=== PATIENT | female | born 1980 | race Caucasian/White ===

== ENCOUNTER → 2019-01-24 | Outpatient (CLI) | payer OTHER ==
--- NOTE | 2019-01-25 09:47 | CT ---
EXAM DESCRIPTION: CTA Chest: Computed Tomography. CLINICAL HISTORY: CHEST PAIN COMPARISON: CT chest with contrast 2014. TECHNIQUE: Spiral-axial scans at 5 x 5 mm intervals through the pulmonary arteries and chest after bolus infusion of IV contrast. Coronal and sagittal 2.0 Mm reconstructions. 10.0 mm PE oblique 3-D reformatted images. No adverse reactions. Total Exam DLP: 74.6 to mGy-cm. This exam was performed according to our departmental CT dose-optimization program which includes automated exposure control, adjustment of the mA and/or kV according to patient size and/or use of iterative reconstruction technique; to reduce radiation dose to as low as reasonably achievable (ALARA). FINDINGS: Heart and great vessels: Density in the pulmonary artery system is similar to the density in the left ventricle and aorta. Contrast in the superior vena cava is more dense. Visualization of the pulmonary artery system from the main pulmonary artery to the bilateral distal segmental arteries with no filling defects. The peripheral distal pulmonary arterial branches are symmetric in size bilaterally. Normal size and contour of the aorta. No significant brachiocephalic or arterial atherosclerotic calcification. Lung and airways: Unremarkable. Pleura: Focal pleural thickening. No effusion or pneumothorax bilaterally. Pebbles and mediastinum. Negative. Soft tissues-chest wall, neck base, and axilla: Large body habitus: Thyroid gland partially visualized. Otherwise negative. Upper abdomen: Included peritoneal space unremarkable. Small atherosclerotic calcification in the aorta. Gallbladder partially visualized with phrygian cap, a normal variant. Included adrenal glands and spleen negative. Osseous structures: Anterior spondylosis at multiple levels. Arthrosis bilateral first costochondral junctions and left sternoclavicular joint. No lytic or blastic lesions. IMPRESSION: CTA of the chest with no evidence of acute pulmonary embolus. Appearance of the chest is stable compared to prior chest CT scan December 2014. Electronically signed by: Chan Ortiz MD 01/25/2019 9:44 AM CDT
== END ==
LOC: CT 14:58
PROVIDERS: ATTEND Family Medicine
DX: R07.82 Intercostal pain (principal); R07.89 Other chest pain

== ENCOUNTER → 2019-07-21 | Outpatient (CLI) | payer OTHER | LOC: LAB.O 09:02 | PROVIDERS: ATTEND Internal Medicine Gastroenterology | DX: K90.0 Celiac disease (principal) ==

== ENCOUNTER → 2019-08-16 | Outpatient (CLI) | payer OTHER ==
--- NOTE | 2019-08-17 09:25 | US ---
EXAM DESCRIPTION: Abdomen,Complete: Ultrasound. CLINICAL HISTORY: ABNORMAL RESULTS OF A LIVER FUNCTION TEST COMPARISON: None Available. TECHNIQUE: Transabdominal scanning: grayscale and Doppler modes. FINDINGS: Gallbladder: Normal size and echogenicity with no intraluminal stones or sludge. Wall thickness 2.4 mm normal caliber. No surrounding fluid. Nontender with transducer pressure. Common bile duct: 1 0 mm normal caliber Liver: Long axis right lobe 13.9 cm. Heterogeneously increased echogenicity. No focal lesions. Physiologic blood flow with normal caliber of the ducts. Smooth capsule with no ascites. Pancreas: Included segments with normal caliber; pancreatic duct not seen.. Abdominal aorta: Normal caliber from the proximal segment to the distal bifurcation. IVC: visualized; normal caliber. Spleen normal echogenicity; long axis measurement is 10.8 cm. Right kidney: 10.9 cm long axis. Normal cortical thickness and echogenicity. No echogenic stones or hydronephrosis. Left kidney: 10.4 cm long axis. Normal cortical thickness and echogenicity. No echogenic stones or hydronephrosis. IMPRESSION: 1. Steatosis of the liver with normal size. Physiologic blood flow and normal duct caliber. Smooth capsule no ascites. 2. Remaining upper abdominal organs are unremarkable with no ascites. Stomach was not evaluated. Electronically signed by: Chan Ortiz MD 08/17/2019 9:23 AM CDT
== END ==
LOC: LAB.O 09:44
PROVIDERS: ATTEND Internal Medicine Gastroenterology
DX: R94.5 Abnormal results of liver function studies (principal); K76.0 Fatty (change of) liver, not elsewhere classified

== ENCOUNTER → 2020-02-22 | Outpatient (CLI) | payer OTHER | LOC: LAB.O 09:18 | PROVIDERS: ATTEND Internal Medicine | DX: R74.8 Abnormal levels of other serum enzymes (principal) ==

== ENCOUNTER → 2020-05-14 | Outpatient (CLI) | payer OTHER | LOC: LAB.O 09:00 | PROVIDERS: ATTEND Internal Medicine | DX: R74.8 Abnormal levels of other serum enzymes (principal) ==

== ENCOUNTER → 2020-08-28 | Outpatient (CLI) | payer BC, OTHER ==
--- NOTE | 2020-08-30 09:30 | US ---
EXAM DESCRIPTION: Pelvic,Non-OB: Ultrasound. CLINICAL HISTORY: 40 years Female Irregular menstruation COMPARISON: CT pelvis from May 2011. TECHNIQUE: Transcutaneous scanning through the urine filled bladder. Endovaginal scanning. Bauer-scale and Doppler modes. FINDINGS: Uterus 7.0 x 2.7 x 3.6 cm. 24.9 mL. Endometrium 7 mm. No fluid.. Myometrium heterogeneous. Uterus not retroverted. Cervix unremarkable. Cul-de-sac: No fluid. Right ovary 3.4 x 3.3 x 1.8 cm. 7.1 mL. Normal color Doppler vascularity. 1.8 cm and 1.2 cm simple follicles, but no cysts. No adnexal mass or free fluid. Left ovary 2.7 x 2.0 x 3.1 cm. 3.8 mL. Normal color Doppler vascularity. 1.9 cm simple follicle; no cysts. No adnexal mass or free fluid. IMPRESSION: Bilateral ovaries with simple follicles but no cysts. No calcifications. No adnexal mass or fluid. Uterus unremarkable with endometrial thickness 7 mm. This may be related to clinical issue. No fluid in the cul-de-sac. Electronically signed by: Chan Ortiz MD 08/30/2020 9:28 AM [employer]
--- NOTE | 2020-08-30 16:09 | MAM ---
EXAM DESCRIPTION: 3D Screening BILATERAL : Digital Mammography. CLINICAL HISTORY: 40 years Female SCREEN .. No complaints. No family history breast cancer. Menarche age 11. Childbirth. Premenopausal. No HRT. Benign right breast biopsy. Lifetime risk of developing breast cancer (Tyrer-Cuzick model)(%): 12.0. COMPARISON: Baseline study at this facility.. No prior reports available. TECHNIQUE: Bilateral CC and MLO projection full-field images, digital tomosynthesis mammographic technique. Bilateral digital 2-D full-field MLO images. CAD available for 2-D images. FINDINGS: The breast parenchymal density pattern is: Scattered areas of fibroglandular density. No skin thickening or nipple retraction. Axillary nodes. Solitary microcalcifications. Coarse calcifications. Partially circumscribed nodule 5:00 position of right breast 5 cm from the nipple. Possible lymph node. No new focal, stellate mass or density, focal asymmetry , and no suspicious microcalcifications left breast. IMPRESSION: BI-RADS CATEGORY: 0 - INCOMPLETE- Need additional imaging evaluation. RECOMMENDATIONS: FOLLOW-UP: Recall for additional imaging: Directed right breast ultrasound region of interest.. Written communication concerning the IMPRESSION and Follow-up, will be mailed to the patient and referring health care provider. Electronically signed by: Chan Ortiz MD 08/30/2020 4:07 PM [employer]CH[employer]
== END ==
LOC: US 12:58
DX: Z12.31 Encounter for screening mammogram for malignant neoplasm of breast (principal); N92.6 Irregular menstruation, unspecified

== ENCOUNTER → 2020-09-13 | Outpatient (CLI) | payer BC ==
--- NOTE | 2020-09-14 14:02 | US ---
EXAM DESCRIPTION: Breast,Right: Ultrasound CLINICAL HISTORY: 40 yearsFemaleABNORMAL MAMMO patient history Lifetime risk of developing breast cancer (Tyrer-Cuzick model)(%): Not calculated COMPARISON: Bilateral screening digital breast tomosynthesis August 28, 2020. TECHNIQUE: Transcutaneous scanning of the right breast utilizing peter-scale and Doppler modes. Scanning performed by the programmer analyst and Dr. Ortiz. Diagnostic mammography was not performed. FINDINGS: Ultrasound: Scanning of the lower inner quadrant of the anterior and middle right breast. Scanning by centimeters from the nipple at 5:00. Circumscribed anechoic triangular-shaped cyst parallel to the skin with posterior acoustic enhancement. 10.9 x 3.6 is 4.5 mm. Nonvascular. Posterior acoustic enhancement. IMPRESSION: Benign exam. BIRAD CATEGORY: 2 BENIGN FINDINGS. RECOMMENDATIONS: FOLLOW UP: Routine digital bilateral mammographic screening, one year interval from August 2020. Written communication explaining the IMPRESSION and follow-up, will be mailed to the patient and referring health care provider. The FINDINGS and the FOLLOW-UP plan were reviewed in person with the patient after the examination. According to the [employer], yearly mammograms are recommended starting at age 40 and continuing as long as a woman is in good health. Any breast change noted on a breast self-exam should be reported promptly to the patient's healthcare provider. Breast MRI is recommended for women with an approximately 20-25% or greater lifetime risk of breast cancer, including women with a strong family history of breast or ovarian cancer and women who have been treated for Hodgkin's disease. A negative mammographic report should not delay tissue diagnosis in patients with significant clinical history or physical findings. Extremely dense breast tissue limits the sensitivity of digital mammography. Electronically signed by: Chan Ortiz MD 09/14/2020 2:01 PM [facility]
== END ==
LOC: MAMMO 08:11
DX: R92.8 Other abnormal and inconclusive findings on diagnostic imaging of breast (principal)

== ENCOUNTER → 2020-10-22 | Outpatient (CLI) | payer BC | LOC: LAB.O 10:53 | PROVIDERS: ATTEND Internal Medicine | DX: R74.8 Abnormal levels of other serum enzymes (principal) ==